=== PATIENT | female | born 1970 | race Caucasian/White ===

== ENCOUNTER 2021-03-29 02:11 | Inpatient (IN) | payer OTHER ==
[~2021-03-29] VITALS: Ht 167.6 cm; Wt 64.9 kg
[2021-03-29] MEDS ORDERED: ACETAMINOPHEN 650 MG/SUPP.RECT RC ONE ×3 (02:23→02:33)
[2021-03-29] MEDS ORDERED: APIX5TAB GT (02:27)
[2021-03-29] MEDS ORDERED: IPRA3AMP23 IH (02:27)
[2021-03-29] MEDS ORDERED: METF-440 GT (02:27)
[2021-03-29] MEDS ORDERED: QUET50TA GT (02:27)
[2021-03-29] MEDS ORDERED: HYDR-4303 GT (02:27)
[2021-03-29] MEDS ORDERED: QUET25TA GT (02:27)
[2021-03-29] MEDS ORDERED: FERR325T23 GT (02:27)
[2021-03-29] MEDS ORDERED: ESOM40SU2 GT (02:27)
[2021-03-29] MEDS ORDERED: ASCO500T10 GT (02:27)
[2021-03-29] MEDS ORDERED: INSU100V36 SQ (02:28)
[2021-03-29] MEDS ORDERED: IV LR 1000 ML 1,000 ML IV ONE (02:30)
[2021-03-29] MEDS ORDERED: PIPERACILLIN /TAZOBACTAM 3.375 G in IV D5W 50 ML IV ONE (02:30)
[2021-03-29] MEDS ORDERED: PIPERACILLIN /TAZOBACTAM 3.375 G VIAL IV ONE (02:34)
--- NOTE | 2021-03-29 02:45 | NUR ---
RT NOTE LATE ENTRY Pt arrived via 100% fio2 bag mask. When placing pt on mech vent, pt unable to get adequate volumes and high peak airway pressures noted. Suction catheter was unable to pass through the trach tube. Trach Tube was switched from Bivona 8 to Portex 8 DCT per md orders. Pt able to acquire adequate VT from mech vent. Pt sx'd for thick large amt of yellow secretions. Alarms are set and audible. Trach is patent and secured. Ambu bag @ bedside. Will continue to monitor closely. Addendum: 03/29/21 at 0449 by EMMIE JESSICA RT Amended: Links added.
--- NOTE | 2021-03-29 02:45 | NUR ---
LAC #20G S/L; PATENT AND INTACT. BLOOD COLLECTED AND GIVEN TO LAB
[2021-03-29 02:49] LABS: BASOPHILS # (AUTO) 0.1 K/uL (0.0-0.2); BASOPHILS % (AUTO) 0.4 % (0.0-2.0); EOSINOPHILS % (AUTO) 1.9 % (0.0-6.0); HEMATOCRIT 34 % (33-45); HEMOGLOBIN 11.1 g/dL (11.5-14.8); LYMPHOCYTES # (AUTO) 3.6 K/uL (0.8-4.8); LYMPHOCYTES % (AUTO) 25.6 % (20.0-44.0); MEAN CORPUSCULAR HGB CONC 33 g/dl (31.0-36.0); MEAN CORPUSCULAR VOLUME 89 fL (82-100); MONOCYTES # (AUTO) 0.6 K/uL (0.1-1.30); MONOCYTES % (AUTO) 4.4 % (2.0-12.0); NEUTROPHILS # (AUTO) 9.6 K/uL (1.8-8.9); NEUTROPHILS % (AUTO) 67.7 % (43.0-81.0); PLATELET COUNT (AUTO) 409 K/uL (150-450); RED BLOOD CELL COUNT(AUTO) 3.81 MIL/uL (4.0-5.2); WHITE BLOOD COUNT (AUTO) 14.2 K/uL (4.3-11.0)
--- NOTE | 2021-03-29 02:50 | NUR ---
PATIENT BIBRA39 FROM [facility] C/O SOB. PATIENT IS VENT DEPENDENT NORMALLY ON 4L BUT WAS DESATURATING AT 80%. PARAMEDICS INCREASED TO 10L AND PATIENT SATURATIONS INCREASED TO 95%. PATIENT ALERT AND ORIENTED X 2
--- NOTE | 2021-03-29 02:50 | NUR ---
URINE COLLECTED AND SENT TO LAB
--- NOTE | 2021-03-29 02:51 | NUR ---
OPERATIONAL TEST MECHANIC PT NOTED WITH TRACH; INTACT. GTUBE INTACT. F/C DRAINING DARK CLYDE URINE;INTACT.
--- NOTE | 2021-03-29 02:52 | NUR ---
STENOTYPE OPERATOR AT PT'S BEDSIDE
--- NOTE | 2021-03-29 02:54 | NUR ---
[facility] [phone]
--- NOTE | 2021-03-29 03:02 | NUR ---
RESISTENCE WHILE SUCTIONING PT'S TRACH. TRACH CHANGED TO PORTEX 8 CUFF BY BY LISA MOREL WITH RT; NO RESISTENCE. MUCUS PLUG OUT
--- NOTE | 2021-03-29 03:05 | NUR ---
PT CONNECTED TO VENT; SATTING WELL AT SPO2 99%
--- NOTE | 2021-03-29 03:11 | NUR ---
STEEL WOOL MACHINE OPERATOR AT PT'S BEDSIDE
[2021-03-29] MEDS ORDERED: VANCOMYCIN 500 MG VIAL ONE (03:12)
[2021-03-29] MEDS ORDERED: VANCOMYCIN 1 GM VIAL ONE (03:12)
[2021-03-29] MEDS ORDERED: DOXYCYCLINE 100 MG VIAL ONE (03:12)
--- NOTE | 2021-03-29 03:12 | NUR ---
COVID ANTIGEN AND PCR SWAB COLLECTED AND SENT TO LAB
[2021-03-29 03:17] LABS: CALCIUM, SERUM 9.6 mg/dL (8.5-10.1); CARBON DIOXIDE 32 mmol/L (21-32); CHLORIDE 105 mmol/L (98-107); CREATININE 0.9 mg/dL (0.6-1.3); GLUCOSE 116 mg/dL (74-106); POTASSIUM 4.1 mmol/L (3.5-5.1); SODIUM SERUM 142 mmol/L (136-145); UREA NITROGEN, BLOOD 20 mg/dL (7-18)
--- NOTE | 2021-03-29 03:17 | NUR ---
PT VENT SETTINGS : BPM 15 TV 400 FIO2 40% PEAK FLOW 40 PEEP 5 RSV 12 TOLERATING WELL AT SPO2 98%
[2021-03-29 03:25] LABS: BILIRUBIN,URINE NEGATIVE (NEGATIVE); COLOR,URINE RED (YELLOW); LEUKOCYTE ESTERASE ,URINE LARGE (NEGATIVE); NITRITE, URINE NEGATIVE (NEGATIVE); PH,URINE 6.5 (5.0-8.0); PROTEIN,URINE 30 mg/dl (NEGATIVE); UGLUCOSE NEGATIVE (NEGATIVE); UROBILINOGEN,URINE 0.2 EU/dL (0.2)
[2021-03-29] MEDS ORDERED: VANCOMYCIN HCL 1.25 GM in IV D5W 260 ML IV ONE (03:30)
[2021-03-29] MEDS ORDERED: DOXYCYCLINE 100 MG in IV D5W 100 ML IV ONE (03:30)
[2021-03-29 03:32] LABS: ALANINE AMINOTRANSFERASE 28 U/L (12-78); ALBUMIN 3.3 g/dL (3.4-5.0); ALKALINE PHOSPHATASE 95 U/L (46-116); ASPARTATE AMINOTRANSFERASE 21 U/L (15-37); BILIRUBIN,DIRECT 0.1 mg/dL (0.0-0.2); BILIRUBIN,TOTAL 0.2 mg/dL (0.2-1.0); TOTAL PROTEIN, SERUM 8.4 g/dL (6.4-8.2)
--- NOTE | 2021-03-29 03:49 | NUR ---
L HAND #22 G S/L; PATENT AND INTACT.
[2021-03-29] MEDS: BLOOD SUGAR DIAGNOSTIC 1 EACH STRIP IN SCH ×3 (05:28→18:09)
[2021-03-29] MEDS ORDERED: ONDANSETRON HCL/PF 4 MG/2 ML VIAL IVP PRN (05:30)
[2021-03-29] MEDS ORDERED: MAG HYDROX/AL HYDROX/SIMETH 30 ML UDC PO PRN (05:30)
[2021-03-29] MEDS ORDERED: DEXTROSE 50%-WATER 50 ML DISP.SYRIN IV PRN ×2 (05:30)
[2021-03-29] MEDS ORDERED: Z GUARD REMEDY 4 OZ OINT TP PRN (05:30)
[2021-03-29] MEDS ORDERED: INSULIN REGULAR, HUMAN 100 UNIT/ML 3 ML VIAL SQ PRN ×2 (05:30)
[2021-03-29] MEDS ORDERED: ZOLPIDEM TARTRATE 5 MG TABLET PO PRN (05:30)
[2021-03-29] MEDS: IV NS 0.9% 1,000 ML IV PRN (05:42)
[2021-03-29 05:54] LABS: CALCIUM, SERUM 8.6 mg/dL (8.5-10.1); CREATININE 0.9 mg/dL (0.6-1.3); PHOSPHORUS 2.1 mg/dL (2.5-4.9); POTASSIUM 4.7 mmol/L (3.5-5.1)
[2021-03-29 05:57] LABS: BASOPHILS % (AUTO) 0.4 % (0.0-2.0); EOSINOPHILS % (AUTO) 0.6 % (0.0-6.0); HEMATOCRIT 28 % (33-45); HEMOGLOBIN 9.2 g/dL (11.5-14.8); LYMPHOCYTES # (AUTO) 2.3 K/uL (0.8-4.8); LYMPHOCYTES % (AUTO) 18.4 % (20.0-44.0); MEAN CORPUSCULAR HGB CONC 33 g/dl (31.0-36.0); MEAN CORPUSCULAR VOLUME 88 fL (82-100); MONOCYTES # (AUTO) 0.6 K/uL (0.1-1.30); MONOCYTES % (AUTO) 4.6 % (2.0-12.0); NEUTROPHILS # (AUTO) 9.4 K/uL (1.8-8.9); PLATELET COUNT (AUTO) 345 K/uL (150-450); RED BLOOD CELL COUNT(AUTO) 3.18 MIL/uL (4.0-5.2); WHITE BLOOD COUNT (AUTO) 12.4 K/uL (4.3-11.0)
[2021-03-29] MEDS ORDERED: BLOOD SUGAR DIAGNOSTIC 1 EACH STRIP IN SCH (06:00)
[2021-03-29] MEDS: IPRATROPIUM/ALBUTEROL INHALER IH SCH ×3 (07:58→22:20)
[2021-03-29 09:17] LABS: BACTERIA,URINE Few /HPF (None Seen); RBC,URINE 81-100 /HPF (0-2); SQUAMOUS EPITHELIAL CELL,UR Moderate /HPF (None Seen)
[2021-03-29] MEDS ORDERED: APIXABAN 5 MG TABLET ONE (09:17)
[2021-03-29] MEDS ORDERED: ASCORBIC ACID 500 MG TABLET ONE (09:18)
[2021-03-29] MEDS: FERROUS SULFATE (325 MG) 325 MG/TAB TABLET GT SCH (09:38)
[2021-03-29] MEDS: APIXABAN 5 MG TABLET GT SCH ×2 (09:38→18:08)
[2021-03-29] MEDS: ASCORBIC ACID 500 MG TABLET GT SCH (09:38)
[2021-03-29] MEDS: PIPERACILLIN /TAZOBACTAM 3.375 G in IV D5W 100 ML IV SCH ×2 (10:19→18:55)
--- NOTE | 2021-03-29 13:48 | NUR ---
GOT BED 204 AFTER 1500 PER HOUSE SUP.
--- NOTE | 2021-03-29 14:16 | NUR ---
NEW ROOM 116 PER NURSING SUP Addendum: 03/29/21 at 1430 by FERNANDA ROOM 115 PER NURSING SUP
--- NOTE | 2021-03-29 14:58 | NUR ---
report given to shamar for farzaneh
--- NOTE | 2021-03-29 15:14 | NUR ---
pt transport with respiratory and acls protocol
[2021-03-29] MEDS ORDERED: NEUTRA PHOS 1 POWD.PACKET GT ONE (15:30)
[2021-03-29] MEDS: VANCOMYCIN HCL 0.75 GM in IV D5W 250 ML IV SCH ×2 (15:57→20:06)
--- NOTE | 2021-03-29 16:18 | NUR ---
RT Received pt in ER bed 5. Received pt on current settings as noted- pt tolerating settings well. Back up trach at bed side. Will continue to monitor throughout shift.
[2021-03-29] MEDS: ACETAMINOPHEN 325 MG TABLET PO PRN (18:07)
--- NOTE | 2021-03-29 19:50 | NUR ---
RN OPENING NOTE RECEIVED CARE OF PATIENT WHILE PATIENT IN BED, A/O X1, AGITATED AND RESTLESS. REPOSITIONED PATIENT FOR COMFORT, USED THERAPEUTIC COMMUNICATION, AND USED RELAXATION TECHNIQUES TO CALM PATIENT. PATIENT REMAINS AGITATED. BILATERAL SOFT WRIST RESTRAINTS NOTED, NO SIGNS AND SYMPTOMS OF CIRCULATORY COMPLICATIONS. NO SIGNIFICANT FINDINGS UPON INITIAL NURSING ASSESSMENTS. [facility], TOLERATING SETTINGS WELL. L FA G#22 IV ACCESS NOTED SALINE LOCK IN PLACE WITH IVF NS @75CC/HR. WADE CATH IN PLACE DRAINING WELL WITH CLEAR CLYDE URINE. ALL SAFETY PRECAUTION IMPLEMENTED. BED IS AT LOWEST POSITION AND LOCKED AND IN PLACE. BED IS SEMI FOWLERS, SIDE RAILS UP X2, CALL LIGHT WITHIN REACH. WILL CONTINUE TO MONITOR PATIENT FOR ANY CHANGES IN CONDITION.
[2021-03-29 20:00] VITALS: BP 133/58
[2021-03-29] MEDS: LORAZEPAM INJ 2 MG/ML VIAL IV PRN (20:07)
--- NOTE | 2021-03-29 20:17 | NUR ---
RN NOTE PT RESTING IN BED. WITH BILATERAL SOFT RESTRAINTS ON, NO SIGNS AND SYMPTOMS OF CIRCULATORY COMPLICATIONS. PT ON MECH VENT, TOLERATING SETTINGS WELL. L HAND SALINE LOCK IN PLACE WITH IVF NS @75CC/HR. WADE CATH IN PLACE DRAINING WELL WITH CLEAR CLYDE URINE. DUE MEDICATIONS GIVEN, PM CARE DONE. VITALS WNL. ALL SAFETY MEASURES FOLLOWED.
--- NOTE | 2021-03-29 20:22 | NUR ---
RT Pt recvd on AC vent settings, trach is patent and secured. Pt is restrained and thrashing around on bed, no SOB noted. pulling on tubings. RN Rudy and equipment manager Abby informed and are at bedside. Ambu bag and spare trach at bedside. Vent alarms are on and audible. Minimal white thin secretions. Will continue to monitor.
[2021-03-29] MEDS: MEROPENEM 500 MG in IV NS 0.9% 50 ML IV SCH (21:00)
[2021-03-29] MEDS ORDERED: MEROPENEM 500 MG in IV NS 0.9% 50 ML IV SCH (21:00)
--- NOTE | 2021-03-29 21:30 | NUR ---
RN NOTE PER MD ORDER, MERREM 500 MG IN IV 0.9% NS 50 ML WILL BE HELD, PHARMACY TO FOLLOW UP IN AM WITH EXTENDED INFUSION PROTOCOL.
[2021-03-30] VITALS: BP 138/83
[2021-03-30] MEDS: BLOOD SUGAR DIAGNOSTIC 1 EACH STRIP IN SCH ×4 (00:14→18:14)
[2021-03-30] MEDS: IPRATROPIUM/ALBUTEROL INHALER IH SCH ×3 (01:55→21:15)
[2021-03-30] MEDS ORDERED: MEROPENEM 500 MG VIAL IV ONE ×2 (03:28→05:05)
[2021-03-30 04:00] VITALS: BP 140/76
[2021-03-30] MEDS: VANCOMYCIN HCL 0.75 GM in IV D5W 250 ML IV SCH ×3 (04:54→21:49)
[2021-03-30] MEDS: MEROPENEM 500 MG in IV NS 0.9% 50 ML IV SCH (05:15)
--- NOTE | 2021-03-30 07:30 | NUR ---
RN NOTE RECEIVED PATIENT IN STABLE CONDITIONS, PATIENT IS IN BED, ASLEEP, BUT WAKES UP TO NAME. PATIENT HAS BILATERAL SOFT WRIST RESTRAINTS, PT ON MECH VENT, TOLERATING SETTINGS WELL. LAC G#22 IV ACCESS NOTED SALINE LOCK IN PLACE WITH IVF NS @75CC/HR. WADE CATH IN PLACE DRAINING WELL WITH CLYDE COLOR URINE. ALL SAFETY PRECAUTION IMPLEMENTED. BED IS AT LOWEST POSITION AND LOCKED AND IN PLACE. BED IS SEMI FOWLERS, SIDE RAILS UP X2, CALL LIGHT IS WITHIN REACH. WILL ETTA
--- NOTE | 2021-03-30 07:30 | NUR ---
RN CLOSING NOTE ENDORSE PATIENT IN STABLE CONDITIONS, PATIENT IS IN BED, ASLEEP, BUT WAKES UP TO NAME. PATIENT HAS BILATERAL SOFT WRIST RESTRAINTS, NO SIGNS AND SYMPTOMS OF CIRCULATORY COMPLICATIONS THROUGHOUT SHIFT. NO SIGNIFICANT FINDINGS UPON ALL NURSING ASSESSMENTS. PT ON MECH VENT, TOLERATING SETTINGS WELL. LAC G#22 IV ACCESS NOTED SALINE LOCK IN PLACE WITH IVF NS @75CC/HR. WADE CATH IN PLACE DRAINING WELL WITH CLEAR CLYDE URINE. ALL NEEDS ATTENDED TO, ALL DUE MEDS GIVEN. ALL SAFETY PRECAUTION IMPLEMENTED. BED IS AT LOWEST POSITION AND LOCKED AND IN PLACE. BED IS SEMI FOWLERS, SIDE RAILS UP X2, CALL LIGHT IS WITHIN REACH. ENDORSED PATIENT TO DAY SHIFT NURSE FOR ETTA.
[2021-03-30 08:00] VITALS: BP 140/76
[2021-03-30] MEDS: FERROUS SULFATE (325 MG) 325 MG/TAB TABLET GT SCH (08:50)
[2021-03-30] MEDS: LORAZEPAM INJ 2 MG/ML VIAL IV PRN (08:50)
[2021-03-30] MEDS: ASCORBIC ACID 500 MG TABLET GT SCH (08:50)
[2021-03-30] MEDS: APIXABAN 5 MG TABLET GT SCH ×2 (08:50→16:04)
--- NOTE | 2021-03-30 08:50 | NUR ---
RN NOTE PT RESTLESS AND ANXIOUS, ATIVAN 1MG, 0.5 ML GIVEN. WILL REASSESS AND CONTINUE OF CARE. CHARGE NURSE BETTY NOTIFIED.
[2021-03-30 09:05] LABS: ALBUMIN 2.7 g/dL (3.4-5.0); BILIRUBIN,TOTAL 0.5 mg/dL (0.2-1.0); CALCIUM, SERUM 8.5 mg/dL (8.5-10.1); CREATININE 0.9 mg/dL (0.6-1.3); MAGNESIUM 1.9 mg/dL (1.8-2.4); POTASSIUM 3.2 mmol/L (3.5-5.1)
--- NOTE | 2021-03-30 09:30 | NUR ---
RN NOTE REASSESS PT, PT CALM AND ASLEEP IN BED.
[2021-03-30 09:40] LABS: BASOPHILS % (AUTO) 0.4 % (0.0-2.0); EOSINOPHILS % (AUTO) 3.1 % (0.0-6.0); HEMATOCRIT 27 % (33-45); HEMOGLOBIN 9.2 g/dL (11.5-14.8); LYMPHOCYTES # (AUTO) 2.7 K/uL (0.8-4.8); LYMPHOCYTES % (AUTO) 26.5 % (20.0-44.0); MEAN CORPUSCULAR HGB CONC 34 g/dl (31.0-36.0); MEAN CORPUSCULAR VOLUME 88 fL (82-100); MONOCYTES # (AUTO) 0.5 K/uL (0.1-1.30); MONOCYTES % (AUTO) 5.4 % (2.0-12.0); NEUTROPHILS # (AUTO) 6.6 K/uL (1.8-8.9); NEUTROPHILS % (AUTO) 64.6 % (43.0-81.0); PLATELET COUNT (AUTO) 326 K/uL (150-450); RED BLOOD CELL COUNT(AUTO) 3.11 MIL/uL (4.0-5.2); WHITE BLOOD COUNT (AUTO) 10.1 K/uL (4.3-11.0)
[2021-03-30 12:00] VITALS: BP 103/72
[2021-03-30] MEDS: IV NS 0.9% 1,000 ML IV PRN (12:12)
[2021-03-30] MEDS: MEROPENEM 1 G in IV NS 0.9% 100 ML IV SCH ×2 (12:12→21:14)
[2021-03-30] MEDS ORDERED: NEUTRA PHOS 1 POWD.PACKET PO ONE (13:00)
--- NOTE | 2021-03-30 13:39 | NUR ---
RN NOTE HOLD VANCOMYCIN DUE TO HIGH VANCO THROUGH, 47 PER PHARMACY ORDER, TALKED TO RAYMOND.
[2021-03-30 16:00] VITALS: BP 106/52
--- NOTE | 2021-03-30 19:00 | NUR ---
RN NOTE RECEIVED PATIENT IN BED, AO X 1, IN NO S/SX OF ACUTE DISTRESS AT THIS TIME. BREATHING UNLABORED, SATURATION AT 96% ON TRACH PORTEX#8 CONNECTED TO MECHANICAL VENT WITH SETTINGS PRESCRIBED: AC 15, TV 400, FIO2 40%, PEEP 5; SR ON THE MONITOR, HR IS 60. NOTED IV SITE AT LAC 22G, PATENT AND FLUSHING WELL, NO S/S OF INFECTION OR INFILTRATION WITH NS INFUSING AT 75 ML/HR. BILATERAL SOFT WRIST RESTRAINS IN PLACE PER MD ORDER, SKIN AND CIRCULATION WAS CHECKED. NOTED GTUBE INTACT POSITIVE PLACEMENT NOTED, NO RESIDUAL, WITH ORDERS TO START TUBE FEEDING OF GLUCERNA 1.2 AT 60 ML/HR. WADE CATHETER CONNECTED TO URINE BAG IN PLACE, DRAINING TO A CLEAR, YELLOW OUTPUT. SAFETY MEASURES IMPLEMENTED. PATIENT BED ALARM IS ON. HEAD OF BED ELEVATED. BED IS LOCKED, IN LOWEST POSITION AND SIDE RAILS UP. CALL LIGHT WITHIN REACH OF THE PATIENT. WILL CONTINUE TO MONITOR AND REASSESS FOR ANY CHANGES.
--- NOTE | 2021-03-30 19:39 | NUR ---
RN CLOSING NOTE ENDORSE PATIENT IN STABLE CONDITIONS, PATIENT IS IN BED, ASLEEP, BUT WAKES UP TO NAME. PATIENT HAS BILATERAL SOFT WRIST RESTRAINTS, NO SIGNS AND SYMPTOMS OF CIRCULATORY COMPLICATIONS THROUGHOUT SHIFT. NO SIGNIFICANT FINDINGS UPON ALL NURSING ASSESSMENTS. [facility], TOLERATING SETTINGS WELL. LAC G#22 IV ACCESS NOTED SALINE LOCK IN PLACE WITH IVF NS @75CC/HR. WADE CATH IN PLACE DRAINING WELL WITH CLYDE URINE. ALL NEEDS ATTENDED TO, ALL DUE MEDS GIVEN. ALL SAFETY PRECAUTION IMPLEMENTED. BED IS AT LOWEST POSITION AND LOCKED AND IN PLACE. BED IS SEMI FOWLERS, SIDE RAILS UP X2, CALL LIGHT IS WITHIN REACH. ENDORSED
[2021-03-30 20:00] VITALS: BP 101/59
--- NOTE | 2021-03-30 21:00 | NUR ---
RN NOTE 2100 DOSE OF VANCOMYCIN 0.75 GM ADMINISTERED PER PHARMACIST NOTE DATED 03/30/21 FROM PANDA GRANT Pharm: -WBC NORMALIZED, RENAL FUNCTION STABLE -WISAM TROUGH 3 HOURS LATE; 47 IS NOT TRUE TROUGH -GIVE DOSE FOR 2100 TONIGHT -WILL DRAW ANOTHER TROUGH TOMORROW AT 2000 FOR GOAL 15-20; HOLD IF >20 -PHARMACY WILL MONITOR LABS AND FOLLOW UP DAILY SOLAR ENERGY CONSULTANT AND DESIGNERJAKY CLAY
[2021-03-30] MEDS ORDERED: GLUCERNA 1.2 1,000 ML BOTTLE NG PRN (21:30)
[2021-03-30] MEDS: GLUCERNA 1.2 1,000 ML BOTTLE NG PRN (21:43)
[2021-03-31] VITALS: BP 110/65
[2021-03-31] MEDS: BLOOD SUGAR DIAGNOSTIC 1 EACH STRIP IN SCH ×4 (00:27→17:40)
[2021-03-31] MEDS: LORAZEPAM INJ 2 MG/ML VIAL IV PRN ×4 (00:46→20:58)
[2021-03-31] MEDS: IPRATROPIUM/ALBUTEROL INHALER IH SCH ×2 (01:12→19:30)
[2021-03-31 04:00] VITALS: BP 137/72
--- NOTE | 2021-03-31 04:20 | NUR ---
RN NOTE 2100 DOSE OF VANCOMYCIN 0.75 GM ADMINISTERED PER PHARMACIST NOTE DATED 03/30/21 FROM PANDA GRANT Pharm: -WBC NORMALIZED, RENAL FUNCTION STABLE -WISAM TROUGH 3 HOURS LATE; 47 IS NOT TRUE TROUGH -GIVE DOSE FOR 2100 TONIGHT -WILL DRAW ANOTHER TROUGH TOMORROW AT 2000 FOR GOAL 15-20; HOLD IF >20 -PHARMACY WILL MONITOR LABS AND FOLLOW UP DAILY 03/31/2021 0420 - TELEPHONE CALL TO [facility], SPOKE WITH NORMA, VERIFIED IF OK TO GIVE 0500 DOSE OF VANCOMYCIN, HE STATED YES. TRANSIT BUS OPERATOR LETTY CLAY
[2021-03-31] MEDS: MEROPENEM 1 G in IV NS 0.9% 100 ML IV SCH ×3 (04:22→21:32)
[2021-03-31] MEDS: VANCOMYCIN HCL 0.75 GM in IV D5W 250 ML IV SCH ×4 (04:23→21:32)
--- NOTE | 2021-03-31 07:27 | NUR ---
RN NOTE TELEPHONE CALL TO NEXT OF KIN, XU AT [phone], ADVISED HIM TRACH WAS CHANGED 03/30/2021. HE SAID HE WANTS TO DO VIDEO CALL WITH PATIENT IN THE AFTERNOON. WILL ENDORSE TO ZULEIMA STARKEY
--- NOTE | 2021-03-31 07:37 | NUR ---
MANAGER MOBILITY OPENING NOTE RECEIVED PATIENT IN BED, ASLEEP, A/O X1, WAKES UP WHEN CALLED BY NAME. PATIENT HAS BILATERAL SOFT WRIST RESTRAINTS, PT ON MECH VENT, TOLERATING SETTINGS WELL. RIGHT WRIST G#22 IV ACCESS NOTED SALINE LOCK IN PLACE WITH IVF NS @75CC/HR. WADE CATH IN PLACE DRAINING WELL WITH CLYDE COLORED URINE. ALL SAFETY PRECAUTION IMPLEMENTED. BED IS AT LOWEST POSITION AND LOCKED AND IN PLACE. BED IS SEMI FOWLERS, SIDE RAILS UP X2, CALL LIGHT IS WITHIN REACH. WILL CONTINUE TO MONITOR.
[2021-03-31 08:00] VITALS: BP 113/67
[2021-03-31] MEDS: FERROUS SULFATE (325 MG) 325 MG/TAB TABLET GT SCH (08:14)
[2021-03-31] MEDS: APIXABAN 5 MG TABLET GT SCH ×2 (08:14→16:31)
[2021-03-31] MEDS: ASCORBIC ACID 500 MG TABLET GT SCH (08:14)
--- NOTE | 2021-03-31 09:02 | NUR ---
PREPARATION ROOM MANAGER NOTES PATIENT ORDERED MIDLINE INSERTION.
--- NOTE | 2021-03-31 09:52 | NUR ---
ARCHITECT INTERN NOTE PATIENT AGITATED, TRIED TO PULL IV LINE, GIVEN ATIVAN PRN VIA MIDLINE. O2 SATURATION 98%, HEART RATE 105.
--- NOTE | 2021-03-31 10:09 | NUR ---
FINAL TESTER NOTE DOCTOR OLGA CHANGED ORDER OF ATIVAN Q6H PRN TO Q3H PRN.
[2021-03-31 12:00] VITALS: BP 110/70
--- NOTE | 2021-03-31 12:21 | NUR ---
INTERNET AND E BUSINESS PROJECT MANAGER NOTE PATIENT VANCOMYCIN TROUGH IS 47 MCG/ML. CONTACTED PHARMACY AND WAS TOLD TO ADMINISTER VANCOMYCIN SCHEDULED AT 1300.
--- NOTE | 2021-03-31 12:45 | NUR ---
SAP PI ARCHITECT NOTE DR GASCA AT BEDSIDE UPDATED PATIENT CONDITION,AWARE THAT PATIENT VERY AGITATED AND TRYING TO REMOVE ALL LINE OK TO CONT WITH ATIVAN Q 3 HOUR PRN PER ORDER DR ESPINOZA ALSO OK TO START SEROQUEL FROM HOME DOSES , WILL F]U
[2021-03-31] MEDS: QUETIAPINE FUMARATE 25 MG TABLET GT SCH (13:51)
--- NOTE | 2021-03-31 15:00 | NUR ---
GAS OPERATIONS ANALYST NOTE DR GASCA AT BEDSIDE AWARE THAT PATIENT STILL AGITATED O FACE TO FACE ASSESSMENT DONE OK TO RENEW SOFT RESTRAIN, WILL F\U
[2021-03-31 15:14] LABS: BASOPHILS % (AUTO) 0.5 % (0.0-2.0); EOSINOPHILS % (AUTO) 1.9 % (0.0-6.0); HEMATOCRIT 26 % (33-45); HEMOGLOBIN 8.1 g/dL (11.5-14.8); LYMPHOCYTES # (AUTO) 2.2 K/uL (0.8-4.8); LYMPHOCYTES % (AUTO) 30.3 % (20.0-44.0); MEAN CORPUSCULAR HGB CONC 31 g/dl (31.0-36.0); MEAN CORPUSCULAR VOLUME 94 fL (82-100); MONOCYTES # (AUTO) 0.3 K/uL (0.1-1.30); MONOCYTES % (AUTO) 4.3 % (2.0-12.0); NEUTROPHILS # (AUTO) 4.6 K/uL (1.8-8.9); PLATELET COUNT (AUTO) 249 K/uL (150-450); RED BLOOD CELL COUNT(AUTO) 2.78 MIL/uL (4.0-5.2); WHITE BLOOD COUNT (AUTO) 7.3 K/uL (4.3-11.0)
[2021-03-31 15:53] LABS: CALCIUM, SERUM 8.2 mg/dL (8.5-10.1); CREATININE 0.8 mg/dL (0.6-1.3); PHOSPHORUS 2.8 mg/dL (2.5-4.9); POTASSIUM 3.5 mmol/L (3.5-5.1)
[2021-03-31 16:00] VITALS: BP 95/59
[2021-03-31] MEDS: IV NS 0.9% 1,000 ML IV PRN (16:34)
[2021-03-31 17:10] LABS: EOSINOPHILS % (MANUAL) 1 % (0-4); LYMPHOCYTES % (MANUAL) 31 % (16-48); MONOCYTES % (MANUAL) 2 % (0-11.0); NEUTROPHILS % (MANUAL) 66 (42-76)
[2021-03-31] MEDS: GLUCERNA 1.2 1,000 ML BOTTLE NG PRN (18:22)
--- NOTE | 2021-03-31 18:27 | NUR ---
teletype clerk note patiient in bed , all needs attended, on tele,monitor st 107 at this time, on 2l nc no sob noted at this time , on ivf as ordered ,bed in lowest and locked position , call light within reach
--- NOTE | 2021-03-31 19:20 | NUR ---
RN OPENING NOTES RECEIVED PATIENT IN BED, AWAKE, NO SOB NOTED NOT IN DISTRESS, A/O X1, PT ON MECH VENT, TOLERATING SETTINGS WELL. PATIENT NOTED WITH RIGHT WRIST G#22 IV ACCESS, PATENT INTACT AND FLUSHED WITH NORMAL SALINE AND RUNNING WITH IVF NS @75CC/HR. WADE CATH IN PLACE DRAINING WELL. PATIENT WITH GTUBE FEEDING RUNNING WITH GLUCERNA 1.2 @ 60ML/HR, IN PLACED INTACT, WITH NO RESIDUAL NOTED UPON ASPIRATION. PATIENT WITH BILATERAL WRIST SOFT RESTRAINT, ALL SAFETY PRECAUTION IMPLEMENTED. BED IS AT LOWEST POSITION AND LOCKED. BED ALARM ARMED. CALL LIGHT IS WITHIN REACH. WILL CONTINUE TO MONITOR
[2021-03-31 20:00] VITALS: BP 109/58
--- NOTE | 2021-03-31 20:07 | NUR ---
RT combivent unable to give. pt on vent. not acceptable adapter available. notified sly cassidy
--- NOTE | 2021-03-31 20:58 | NUR ---
RN NOTES PATIENT IS AGITATED, ATIVAN GIVEN PER MD'S ORDER.
[2021-03-31] MEDS: ACETAMINOPHEN 325 MG TABLET PO PRN (20:59)
--- NOTE | 2021-03-31 20:59 | NUR ---
RN NOTES PATIENT NOTED WITH TEMPERATURE 99.6 FAHRENHEIT, COOLING MEASURE PROVIDED, ACETAMINOPHEN GIVEN PER MD'S ORDER. CONTINUE TO MONITOR.
--- NOTE | 2021-03-31 21:59 | NUR ---
RN NOTES TEMPERATURE RECHECKED AND OBTAINED 99.1 FAHRENHEIT, WILL CONTINUE TO MONITOR
[2021-03-31] MEDS: MUPIROCIN OINT 2% 22 GM TUBE NS SCH (22:00)
[2021-03-31] MEDS ORDERED: QUETIAPINE FUMARATE 25 MG TABLET GT SCH (22:00)
--- NOTE | 2021-03-31 22:00 | NUR ---
RN NOTES VANCOMYCIN 0.75G NOT GIVEN, VANCO TROUGH- 30
[2021-04-01] MEDS: BLOOD SUGAR DIAGNOSTIC 1 EACH STRIP IN SCH ×4 (00:50→17:19)
[2021-04-01 01:11] VITALS: BP 136/70
[2021-04-01] MEDS: IPRATROPIUM/ALBUTEROL INHALER IH SCH ×3 (01:30→13:37)
[2021-04-01 04:00] VITALS: BP 124/78
[2021-04-01] MEDS: MEROPENEM 1 G in IV NS 0.9% 100 ML IV SCH ×2 (04:43→12:05)
[2021-04-01] MEDS: VANCOMYCIN HCL 0.75 GM in IV D5W 250 ML IV SCH (04:45)
--- NOTE | 2021-04-01 04:45 | NUR ---
RN NOTES VANCOMYCIN 0.75G NOT GIVEN, VANCO TROUGH- 30
--- NOTE | 2021-04-01 07:14 | NUR ---
RN OPENING NOTE RECEIVE REPORT FROM OPTICIAN NURSE. PATIENT IN STABLE CONDITION. WILL FOLLOW UP AM LABS AND DOCTORS ORDERS. PROPER ISOLATION IN PLACE. ALL SAFETY MEASURE IN PLACE. BED ON LOWEST POSITION WITH HO ELEVATED. CALL LIGHT WITHIN REACH. WILL CONTINUE TO MONITOR.
--- NOTE | 2021-04-01 07:27 | NUR ---
RN CLOSING NOTES REMAIN STABLE THROUGH PUT THE SHIFT, NO SOB NOTED NOT IN DISTRESS, A/O X1, PT ON MECH VENT, TOLERATING SETTINGS WELL. PATIENT NOTED WITH RIGHT WRIST G#22 IV ACCESS, PATENT INTACT AND FLUSHED WITH NORMAL SALINE AND RUNNING WITH IVF NS @75CC/HR. WADE CATH IN PLACE DRAINING WELL. PATIENT WITH GTUBE FEEDING RUNNING WITH GLUCERNA 1.2 @ 60ML/HR, IN PLACED INTACT. ALL DUE MEDS GIVEN ORDERED. PATIENT WITH BILATERAL WRIST SOFT RESTRAINT, ALL SAFETY PRECAUTION IMPLEMENTED. BED IS AT LOWEST POSITION AND LOCKED. BED ALARM ARMED. CALL LIGHT IS WITHIN REACH. WILL CONTINUE TO MONITOR
[2021-04-01 08:00] VITALS: BP 130/73
[2021-04-01] MEDS: MUPIROCIN OINT 2% 22 GM TUBE NS SCH (08:34)
[2021-04-01] MEDS: ASCORBIC ACID 500 MG TABLET GT SCH (08:34)
[2021-04-01] MEDS: QUETIAPINE FUMARATE 25 MG TABLET GT SCH (08:34)
[2021-04-01] MEDS: FERROUS SULFATE (325 MG) 325 MG/TAB TABLET GT SCH (08:34)
[2021-04-01] MEDS: APIXABAN 5 MG TABLET GT SCH ×2 (08:35→17:07)
[2021-04-01] MEDS: LORAZEPAM INJ 2 MG/ML VIAL IV PRN (09:01)
[2021-04-01] MEDS: IV NS 0.9% 1,000 ML IV PRN (09:04)
[2021-04-01 12:00] VITALS: BP 126/73
[2021-04-01] MEDS ORDERED: VANCOMYCIN 500 MG in IV D5W 100 ML IV SCH (13:00)
--- NOTE | 2021-04-01 18:49 | NUR ---
RN NOTE PATIENT IS BEING DISCHARGE. PATIENT IN STABLE CONDITION WITH NO SIGN OF DISTRESS AT TIME OF DISCHARGE. [facility] REPORT WAS GIVEN TO AMBULANCE AND RT FOR TRANSPORT. ALL PAPER SIGNED. DISCHARGE PACKAGE WAS GIVEN TO AMBULANCE TRANSPORT PERSONAL.
== END 2021-04-01 19:19 | DRG 137 ==
LOC: ER 02:28 → TRANSITION 05:15 → TELE1 14:36 → TELE-TD 16:24 → TELE1 03-31 13:22
PROC: 5A1945Z Respiratory Ventilation, 24-96 Consecutive Hours (ICD-10-PCS; principal; 2021-03-29)
DX: J95.851 Ventilator associated pneumonia (principal); J96.21 Acute and chronic respiratory failure with hypoxia; R65.20 Severe sepsis without septic shock; G93.40 Encephalopathy, unspecified; J18.9 Pneumonia, unspecified organism; A41.9 Sepsis, unspecified organism; J90 Pleural effusion, not elsewhere classified; D68.59 Other primary thrombophilia; Z99.11 Dependence on respirator [ventilator] status; I48.20 Chronic atrial fibrillation, unspecified; G25.9 Extrapyramidal and movement disorder, unspecified; E11.9 Type 2 diabetes mellitus without complications; D64.9 Anemia, unspecified; Z86.711 Personal history of pulmonary embolism; Z79.01 Long term (current) use of anticoagulants; N39.0 Urinary tract infection, site not specified; Z20.822 Contact with and (suspected) exposure to COVID-19; Y95 Nosocomial condition; Z79.4 Long term (current) use of insulin; Z79.84 Long term (current) use of oral hypoglycemic drugs; Z79.899 Other long term (current) drug therapy; I48.91 Unspecified atrial fibrillation; B96.89 Other specified bacterial agents as the cause of diseases classified elsewhere; Y84.8 Other medical procedures as the cause of abnormal reaction of the patient, or of later complication, without mention of misadventure at the time of the procedure; R13.10 Dysphagia, unspecified
CPT/HCPCS: 31720; 36415; 71045-TC; 80048-TC; 80053-TC; 80061-TC; 80076-TC; 80202-TC; 81001; 82728-TC; 82962-TC; 83605-TC; 83735-TC; 83880; 84100-TC; 84484-TC; 85025-TC; 85378-TC; 85730-TC; 86140-TC; 87040-TC; 87081-TC; 87086-TC; 87186-TC; 93970-TC; 94002-TC; 94003-TC; 94760-TC; 94799-TC; A4624; G0378; J1815; J2060; J2185; J2543; J3370; J3490; J7030; J7050; J7060; J7120; U0003